=== PATIENT | female | born 1990 | race Caucasian/White ===

== ENCOUNTER 2019-03-10 09:56 | Emergency (ER) | payer SELFPAY ==
[~2019-03-10 09:56] MED LIST: BENZ100C PO; CEPH-264 PO; CETI10TA22 PO; DEPO SHOTS; DIAZ5TAB PO; DULO20CA50 PO; FLUC100T7 PO; FLUT9.9S NS; GABA-586 PO; GUAI118L13 PO; HYDR-1179 PO; HYDR-3165 PO; IBUP800T19 PO; MEDR400V IM; MELO15TA23 PO; METH-38 PO; NEBI5TAB2 PO; NORE-53 PO; ONDA8TAB12 PO; OSEL75CA PO; PHEN-318 PO; TIZA4TAB2 PO; VENL150C PO
[2019-03-10 10:09] VITALS: BP 141/109
--- NOTE | 2019-03-10 10:19 | PHYS DOC ---
Past History Past Medical History: Other Additional Past Medical Histor: PCOS Past Surgical History: Tonsillectomy, Other Additional Past Surgical Histo: R. fallopian tube removed Smoking: Less than 1pk/day Alcohol Use: None Drug Use: None Adult General Chief Complaint Chief Complaint: VAGINAL PROBLEM HPI HPI Patient is a 28-year-old female presents complaining of vaginal discharge for the past 6 weeks. This started shortly after visiting and [place]. She reports that there is a foul odor to the discharge. It has been getting worse over time. She reports what feels like vaginal swelling, and with her menstrual cycle approximately 3 weeks ago she was unable to insert a tampon like she normally does due to the swelling. She also notes some left sided pelvic p ain. She has a history of previous right sided fallopian tube removal due to complications of polycystic ovarian syndrome. She denies any chance of her being . Denies any sexual activity. Holding still as well as moving makes things worse, and the discomfort waxes and wanes over time. No nausea or vomiting. No pain with urination. No back or flank pain. No fever.[] Review of Systems Review of Systems Constitutional: Denies fever or chills [] Eyes: Denies change in visual acuity, redness, or eye pain [] HENT: Denies nasal congestion or sore throat [] Respiratory: Denies cough or shortness of breath [] Cardiovascular: No chest pain or palpitations[] GI: Denies abdominal pain, nausea, vomiting, bloody stools or diarrhea [] : Denies dysuria or hematuria, see history of present illness[] Musculoskeletal: Denies back pain or joint pain [] Integument: Denies rash or skin lesions [] Neurologic: Denies headache, focal weakness or sensory changes [] Endocrine: Denies polyuria or polydipsia [] All other systems were reviewed and found to be within normal limits, except as documented in this note. Allergies Allergies Allergies Coded Allergies Type Severity Reaction Last Updated Verified chlorzoxazone Allergy Intermediate Rash 08/17/16 No Physical Exam Physical Exam Constitutional: Well developed, well nourished, no acute distress, non-toxic appearance. [] HENT: Normocephalic, atraumatic, bilateral external ears normal, oropharynx moist, no oral exudates, nose normal. [] Eyes: PERRLA, EOMI, conjunctiva normal, no discharge. [] Neck: Normal range of motion, no tenderness, supple, no stridor. [] Cardiovascular:Heart rate regular rhythm, no murmur [] Lungs & Thorax: Bilateral breath sounds clear to auscultation [] Abdomen: Bowel sounds normal, soft, no tenderness, no masses, no pulsatile masses. Health exam performed with printing assistant: External genitalia, Maloy's glands, urethra, and Bartholeins glands: There is erythema to the external genitalia, no lesions noted. Vaginal vault: Thin gustafson discharge, no blood. Cervix: Os is closed, no cervical motion tenderness[] Skin: Warm, dry, no erythema, no rash. [] Back: No tenderness, no CVA tenderness. [] Extremities: No tenderness, no cyanosis, no clubbing, ROM intact, no edema. [] Neurologic: Alert and oriented X 3, normal motor function, normal sensory function, no focal deficits noted. [] Psychologic: Affect normal, judgement normal, mood normal. [] Current Patient Data Vital Signs Vital Signs Date Time Temp Pulse Resp B/P (MAP) Pulse Ox O2 Delivery O2 Flow Rate FiO2 03/10/19 10:09 98.1 63 18 95 Room Air EKG EKG [] Radiology/Procedures Radiology/Procedures PROCEDURE: US PELVIS W/TV US PELVIS W/TV Clinical Indication: Left pelvic pain. Right fallopian tube removed due to ovarian cyst. Comparison: None. TECHNIQUE: Real-time ultrasound imaging of the pelvis using transabdominal and transvaginal window is performed. Findings: The transabdominal images are essentially nondiagnostic likely due to bowing bowel gas. Uterus is retroverted. Uterus measures 7.9 x 5.7 x 5 cm. No focal abnormality of the myometrium is identified. The endometrial stripe is normal measuring 6 mm. There are tiny nabothian cysts, largest measures 6 mm. Trace pelvic free fluid. There is normal blood flow in the ovaries. Small ovarian follicles are seen bilaterally. There is a left ovary functional cyst measuring up to 1.9 cm with some internal echoes which may be due to hemorrhage. IMPRESSION: 1. Small left ovary functional cyst may be hemorrhagic. 2. Trace pelvic free fluid, likely physiologic. 3. Tiny nabothian cysts.[] Course & Med Decision Making Course & Med Decision Making Pertinent Labs and Imaging studies reviewed. (See chart for details) ED course: Patient arrived, was placed in bed, and tolerated exam well. Pelvic exam was performed with printing assistant. She was transported to and from radiology with any complications. After return of the laboratory and imaging findings, these were discussed with the patient. All questions were answered. She was discharged in improved condition. Medical decision making: Patient appears to have trichomoniasis. There is no evidence of an STD however this is being evaluated and will be followed if gonorrhea or chlamydia test turn up positive. No evidence of pelvic inflammatory disease. No evidence of significant ovarian pathology at this time, no torsion, no tubo-ovarian abscess.[] Dragon Disclaimer Dragon Disclaimer This electronic medical record was generated, in whole or in part, using a voice recognition dictation system. Departure Departure: Impression: Primary Impression: Trichomoniasis Disposition: HOME, SELF-CARE Condition: IMPROVED Referrals: PCP,NO (PCP) Patient Instructions: Trichomoniasis Additional Instructions: Follow-up with your regular doctor in 2 days. If you do not have a regular doctor list of local clinics will be provided for you. Return to the ER if worsening pain or any other concerns. Scripts Meloxicam (MELOXICAM) 7.5 Mg Tablet 7.5 MG PO DAILY for PAIN, #20 TAB Prov: BARBARA JHA DO 03/10/19 BARBARA JHA DO Mar 10, 2019 10:19
[2019-03-10] MEDS ORDERED: KETOROLAC 30 MG/ML VIAL. IV ONE (10:30)
[2019-03-10 10:36] LABS: BASO % 1 % (0-3); EOS # 0.3 x10^3/uL (0.0-0.7); EOS % 4 % (0-3); HEMATOCRIT 42.6 % (36.0-47.0); HEMOGLOBIN 14.5 g/dL (12.0-15.5); LYMPH # 1.6 x10^3/uL (1.0-4.8); LYMPH % 23 % (24-48); MEAN CORPUSCULAR HEMOGLOBIN 31 pg (25-35); MEAN CORPUSCULAR HGB CONC 34 g/dL (31-37); MEAN CORPUSCULAR VOLUME 92 fL (79-100); MONO # 0.4 x10^3/uL (0.0-1.1); MONO % 6 % (0-9); NEUT # 4.6 x10^3uL (1.8-7.7); NEUT % 66 % (31-73); PLATELET COUNT 280 x10^3/uL (140-400); RED BLOOD COUNT 4.62 x10^6/uL (3.50-5.40)
[2019-03-10 10:50] LABS: ALBUMIN 4.2 g/dL (3.4-5.0); ALBUMIN/GLOBULIN RATIO 1.4 (1.0-1.7); CALCIUM 8.9 mg/dL (8.5-10.1); CREATININE 0.6 mg/dL (0.6-1.0); POTASSIUM 3.9 mmol/L (3.5-5.1); TOTAL BILIRUBIN 0.3 mg/dL (0.2-1.0); TOTAL PROTEIN 7.3 g/dL (6.4-8.2)
[2019-03-10 10:55] LABS: BILIRUBIN,URINE NEG (NEG); CLARITY,URINE CLOUDY; COLOR,URINE YELLOW; GLUCOSE,URINE NEG (NEG); UROBILINOGEN,URINE 0.2 mg/dL (0.2 mg/dL)
[2019-03-10 10:56] LABS: BACTERIA,URINE MOD /HPF (0-FEW); NITRITE,URINE NEG (NEG); RBC,URINE RARE /HPF (0-2); SQUAMOUS EPITHELIAL CELL,UR MANY /LPF; WBC,URINE 20-40 /HPF (0-4)
--- NOTE | 2019-03-10 11:41 | RAD ---
US PELVIS W/TV Clinical Indication: Left pelvic pain. Right fallopian tube removed due to ovarian cyst. Comparison: None. TECHNIQUE: Real-time ultrasound imaging of the pelvis using transabdominal and transvaginal window is performed. Findings: The transabdominal images are essentially nondiagnostic likely due to bowing bowel gas. Uterus is retroverted. Uterus measures 7.9 x 5.7 x 5 cm. No focal abnormality of the myometrium is identified. The endometrial stripe is normal measuring 6 mm. There are tiny nabothian cysts, largest measures 6 mm. Trace pelvic free fluid. There is normal blood flow in the ovaries. Small ovarian follicles are seen bilaterally. There is a left ovary functional cyst measuring up to 1.9 cm with some internal echoes which may be due to hemorrhage. IMPRESSION: 1. Small left ovary functional cyst may be hemorrhagic. 2. Trace pelvic free fluid, likely physiologic. 3. Tiny nabothian cysts. Electronically signed by: Alexi Ya MD (03/10/2019 11:38 AM) [id number]
[2019-03-10] MEDS ORDERED: MELO7.5T29 PO (11:54)
[2019-03-10] MEDS ORDERED: metroNIDAZOLE 500 MG TABLET PO ONE (12:15)
== END 2019-03-10 12:00 | disposition home or self-care (01) ==
LOC: ER 09:56
DX: A59.01 Trichomonal vulvovaginitis (principal); E28.2 Polycystic ovarian syndrome; F17.200 Nicotine dependence, unspecified, uncomplicated; Z90.79 Acquired absence of other genital organ(s); Z88.8 Allergy status to other drugs, medicaments and biological substances
CPT/HCPCS: 36415; 76830; 76856; 80053; 81001; 81025; 83690; 85025; 87086; 87491; 87591; 96374; 99285; J1885; Q0111

== ENCOUNTER 2020-11-06 10:04 | Emergency (ER) | payer SELFPAY ==
[~2020-11-06] VITALS: Ht 165.1 cm; Wt 80.6 kg
[~2020-11-06 10:04] MED LIST changes: -CETI10TA22 PO; +CETI10TA74 PO; +MELO7.5T29 PO
[2020-11-06 10:25] VITALS: BP 142/86
--- NOTE | 2020-11-06 10:54 | PHYS DOC ---
Past History Past Medical History: Other Additional Past Medical Histor: PCOS, sciatica Past Surgical History: Tonsillectomy, Other Additional Past Surgical Histo: R. fallopian tube removed Smoking: Less than 1pk/day Alcohol Use: None Drug Use: None General Adult EDM: Chief Complaint: SORE THROAT HPI: HPI: 30-year-old female presents with sore throat, cough, low-grade fever for the past 2 days. The patient is worried about COVID-19. She has no known exposures. Her 8-year-old son who accompanies her is also ill. He is unable to return to school until he has a negative Covid test. The patient believes she will need a negative test for her place of employment as well. She denies shortness of breath or chest pain. She has no other complaints at this time. Review of Systems: Review of Systems: Constitutional: Fever Eyes: Denies change in visual acuity HENT: Nasal congestion and sore throat Respiratory: Cough without shortness of breath Cardiovascular: Denies chest pain or edema GI: Denies abdominal pain, nausea, vomiting, bloody stools or diarrhea : Denies dysuria Musculoskeletal: Denies back pain or joint pain Integument: Denies rash Neurologic: Denies headache, focal weakness or sensory changes Endocrine: Denies polyuria or polydipsia Lymphatic: Denies swollen glands Psychiatric: Denies depression or anxiety Allergies: Allergies: Allergies Coded Allergies Type Severity Reaction Last Updated Verified chlorzoxazone Allergy Intermediate Rash 08/17/16 No Physical Exam: PE: Constitutional: Well developed, well nourished, no acute distress, non-toxic appearance. [] HENT: Normocephalic, atraumatic, bilateral external ears normal, oropharynx moist, no oral exudates, nose congested. [] Eyes: PERRLA, EOMI, conjunctiva normal, no discharge. [] Neck: Normal range of motion, no tenderness, supple, no stridor. [] Cardiovascular:Heart rate regular rhythm, no murmur [] Lungs & Thorax: Bilateral breath sounds clear to auscultation [] Abdomen: Bowel sounds normal, soft, no tenderness, no masses, no pulsatile masses. [] Skin: Warm, dry, no erythema, no rash. [] Back: No tenderness, no CVA tenderness. [] Extremities: No tenderness, no cyanosis, no clubbing, ROM intact, no edema. [] Neurologic: Alert and oriented X 3, normal motor function, normal sensory function, no focal deficits noted. [] Psychologic: Affect normal, judgement normal, mood normal. [] Current Patient Data: Vital Signs: Vital Signs Date Time Temp Pulse Resp B/P (MAP) Pulse Ox O2 Delivery O2 Flow Rate FiO2 11/06/20 10:25 98.1 78 18 142/86 (104) 99 Room Air EKG: EKG: [] Radiology/Procedures: Radiology/Procedures: [] Heart Score: C/O Chest Pain: N/A Risk Factors: Risk Factors: DM, Current or recent (<one month) smoker, HTN, HLP, family history of CAD, obesity. Risk Scores: Score 0 - 3: 2.5% MACE over next 6 weeks - Discharge Home Score 4 - 6: 20.3% MACE over next 6 weeks - Admit for Clinical Observation Score 7 - 10: 72.7% MACE over next 6 weeks - Early Invasive Strategies Course & Med Decision Making: Course & Med Decision Making Pertinent Labs and Imaging studies reviewed. (See chart for details) We have performed a COVID-19 test. The results are pending. The patient is stable for discharge at this time. [] Dragon Disclaimer: Dragon Disclaimer: This electronic medical record was generated, in whole or in part, using a voice recognition dictation system. Departure Departure: Impression: Primary Impression: Suspected COVID-19 virus infection Disposition: HOME / SELF CARE / HOMELESS Condition: STABLE Referrals: LANEY RIZVI (PCP) Additional Instructions: You have been tested for or diagnosed with COVID-19. It is an infection caused by a new type of coronavirus. COVID-19 will cause cold-like or mild flu symptoms in most. It c an cause more severe symptoms like problems breathing in some. There is no treatment for COVID-19. The body will clear the infection over time. Self-care will help to ease discomfort. Steps to Take: Self-Care Rest as needed. Healthy habits may help you feel better. Steps include: Choose healthy foods including fruits and vegetables. Drink water throughout the day. Get plenty of sleep each night. If you smoke, try to quit. It may ease breathing. Avoid alcohol. Keep Others Healthy The virus can spread to others. Droplets are released every time you sneeze or cough. The droplets can get into the mouth, nose, or eyes of people near you and lead to infection. To lower the chances of spreading COVID-19 to others: Stay at home until your doctor has said it is safe to leave. If you tested positive this will mean staying isolated until both of the following are true: At least 7 days have passed since the start of illness. You are free of fever for at least 72 hours without the use of medicine. During this time: - Avoid public areas, events, or transportation. Do not return to work or school until your doctor has said it is safe to do so. - Call ahead if you need to go to a medical center. Let them know you may have COVID-19. It will help them guide you where to go. They may also ask you to wear a facemask when you come to the office. - If you call for emergency medical services, let them know you may have COVID- 19. While at home: - Try to avoid close contact with others. Stay about 6 feet away. - If possible, spend most of your time in a separate room from others. - Use a face mask if you will be in close contact with others such as sharing a room or vehicle. - Have someone wipe down common surfaces in the home. Use household railroad operating engineer every day on areas like doorknobs, counters, or sinks. - Cough or sneeze into a tissue. Throw the tissue away right after use. If a tissue is not available, cough or sneeze into your elbow. - Wash your hands often. Wash them after sneezing or coughing. Use soap and water and wash for at least 20 seconds. Alcohol based hand ladle cleaner can be used if soap and water is not available. - Do not prepare food for others. Avoid sharing personal items like forks, spoons, or toothbrushes. - Avoid close contact with pets while you are sick. There is no evidence of the virus passing to pets. This is a safety step until more is known about this virus. Isolation can be frustrating. Social interaction can help. Keep in touch with friends and family through phone and tech options. You can still interact with others in your home, just keep a safe distance of about 6 feet. Follow-up: Your doctors office will check in with you to see if there are any changes in your health. You may be asked to keep track of symptoms to share with them. They will also let you know when you are clear to be in public again. Problems to Look Out For: Contact your doctor if your recovery is not going as you expect. Get emergency care if you have problems such as: - Trouble breathing - Nonstop chest pain or pressure - Changes in awareness, confusion, or problems waking - Lips or face have bluish color - Worsening of symptoms If you think you have an emergency, call for emergency medical services right away. As taken from [facility] ANNA IQBAL DO November 06, 2020 10:54
== END 2020-11-06 11:49 | disposition home or self-care (01) ==
LOC: ER 10:04
DX: J02.9 Acute pharyngitis, unspecified (principal); R50.9 Fever, unspecified; R05 Cough; F17.200 Nicotine dependence, unspecified, uncomplicated; Z20.822 Contact with and (suspected) exposure to COVID-19; Z88.8 Allergy status to other drugs, medicaments and biological substances
CPT/HCPCS: 99283; C9803; U0003

== ENCOUNTER 2021-11-03 06:53 | Emergency (ER) | payer SELFPAY ==
[~2021-11-03] VITALS: Ht 165.1 cm; Wt 80.6 kg
[~2021-11-03 06:53] MED LIST changes: +TIZA-75 PO; -TIZA4TAB2 PO; -VENL150C PO; +VENL150C3 PO
--- NOTE | 2021-11-03 07:09 | PHYS DOC ---
Past History Past Medical History: Other Additional Past Medical Histor: PCOS, sciatica Past Surgical History: Tonsillectomy, Other Additional Past Surgical Histo: R. fallopian tube removed Smoking: Less than 1pk/day Alcohol Use: None Drug Use: None General Adult EDM: Chief Complaint: ABDOMINAL PAIN HPI: HPI: Patient is a 31-year-old female who presents with report of lower abdominal pain, right lower quadrant worse than left. Symptoms began last night and it progressively worsened through this morning. She denies fevers or chills. She denies vaginal discharge or bleeding. LMP about 2 weeks ago. She reports nausea, no vomiting. She denies constipation or diarrhea. She denies back or flank pain. She denies urinary symptoms, though she reports that she feels like she cannot urinate just this morning. She denies any pelvic or abdominal trauma. She has a history of PCOS. She has reportedly had a right ovarian cyst removal and right salpingectomy. It does not sound like she had a history of torsion. She denies fevers or chills. She denies cough, dyspnea, chest pain, dizziness, headache. Review of Systems: Review of Systems: Constitutional: Denies fever or chills HENT: Denies nasal congestion or sore throat Respiratory: Denies cough or shortness of breath Cardiovascular: Denies chest pain or edema GI: Generalized lower abdominal pain, pelvic pain, nausea, no vomiting, denies bowel habit changes : Denies urinary symptoms Musculoskeletal: Denies back pain or joint pain Integument: Denies rash Neurologic: Denies headache, focal weakness or sensory changes Psychiatric: Anxiety as it pertains to current clinical condition Allergies: Allergies: Allergies Coded Allergies Type Severity Reaction Last Updated Verified chlorzoxazone Allergy Intermediate Rash 08/17/16 No Physical Exam: PE: Constitutional: Well developed, well nourished, writhing around on the ED gurney, crying, yelling, appears to be uncomfortable and in pain. She is nontoxic in appearance. HENT: Normocephalic, atraumatic, bilateral external ears normal, oropharynx moist, no oral exudates, nose normal. [] Eyes: Conjunctiva are normal, sclerae anicteric Neck: Normal range of motion, no tenderness, supple, no stridor. [] Cardiovascular: Tachycardic, regular, +2 radial and +2 posterior tibial pulses bilaterally Lungs & Thorax: Lungs are clear to auscultation bilaterally without rales, rhonchi or wheezes. No evidence of respiratory distress. Abdomen: Abdomen is soft, nondistended, normal bowel sounds, generalized lower abdominal tenderness, more localized right lower quadrant tenderness, no rigidity, involuntary guarding and rebound tenderness noted, no CVA tenderness, no flank abdominal ecchymosis. No palpable pulsatile mass. No palpable masses organomegaly Skin: Warm, dry, no erythema, no rash. No jaundice. Back: No tenderness, no CVA tenderness. [] Extremities: No tenderness, no cyanosis, no clubbing, ROM intact, no edema. No calf tenderness. Neurologic: Alert and oriented X 3, normal motor function, normal sensory function, no focal deficits noted. [] Psychologic: Anxious, hyperventilating, writhing around on the ED gurney, appears to be in pain. EKG: EKG: [] Radiology/Procedures: Radiology/Procedures: IMAGING REPORT Signed PATIENT: ROLO BARRAGAN LACCOUNT: [id number] : 1990 LOCATION: ER AGE: 31 SEX: F EXAM STATUS: REG ER ORD. PHYSICIAN: ALISON FONSECA DO REASON: pelvic pain, hx of pcos PROCEDURE: US PELVIS W/TV Pelvic ultrasound complete: Reason for examination: Pelvic pain for one day. History of polycystic ovary syndrome. History of right fallopian tube removal. Transabdominal and transvaginal ultrasound examination of the pelvis was performed. No abnormality seen at the bladder. Uterus measures 7.8 x 3.7 x 4 cm in greatest dimensions. Endometrium is not abnormally thickened at 7.9 mm. No uterine mass is seen. Right ovary measures 3 x 2.2 x 2.8 cm in greatest dimension with good vascular flow and a few small follicles are present. Left ovary measures 2.6 x 2.5 x 2.3 cm in greatest dimension and shows good vascular flow and a few small follicles are present. There is complex free fluid present in the pelvic cul-de-sac. IMPRESSION: Small follicles seen bilaterally in the ovaries. Complex free fluid present in the pelvic cul-de-sac. Electronically signed by: Handy Paz MD (11/03/2021 9:42 AM) RADHATIFFANIE DICTATED AND SIGNED BY: HANDY PAZ MD DATE: 11/03/21 0937 CC: ALISON FONSECA DO; LANEY RIZVI ~ IMAGING REPORT Signed PATIENT: ROLO BARRAGANOUNT: [id number] : 1990 LOCATION: ER AGE: 31 SEX: F EXAM STATUS: REG ER ORD. PHYSICIAN: ALISON FONSECA DO REASON: rlq pain, complex fluid in pelvis on us, OMNI 300, 75ml PROCEDURE: CT ABD PELV W/ IV CONTRST ONLY CT abdomen and pelvis with contrast: Reason for examination: Right lower quadrant pain. Complex fluid in the pelvis on ultrasound. Helical images were obtained through the abdomen pelvis with intravenous administration of 75 cc Omnipaque 300. Reconstruction was performed in sagittal and coronal planes. Exposure: One or more of the following individualized dose reduction techniques were utilized for this examination: 1. Automated exposure control 2. Adjustment of the mA and/or kV according to patient size 3. Use of iterative re construction technique. The lung bases are clear. The heart size appears to be normal with no pericardial effusion. No abnormality seen at the liver, spleen, adrenal glands, gallbladder or pancreas. The kidneys show no renal masses, renal calculi, hydronephrosis or evidence of obstructive uropathy. There is some thickening of the wall in the sigmoid colon which may reflect some colitis. The appendix is not identified. The small intestinal tract shows no abnormal dilatation, wall thickening or apparent obstruction. No abnormality seen at the stomach or duodenum. No abnormality seen at the bladder, uterus or ovaries. There is a small amount of free fluid present in the abdomen and pelvis with fluid extending up to the right hepatorenal space. Note is also made of some scattered foci of free air within the abdomen and pelvis. No acute bony abnormalities are seen. IMPRESSION: Small amount of free fluid seen up to the right hepatorenal space. Scattered foci of some free air present in the abdomen and pelvis. Definite site of origin is not identified. Thickening of the colonic wall in the sigmoid colon which may reflect colitis. Electronically signed by: Handy Paz MD (11/03/2021 11:24 AM) [facility] DICTATED AND SIGNED BY: HANDY PAZ MD DATE: 11/03/21 1110 CC: ALISON FONSECA DO; LANEY RIZVI ~ Heart Score: C/O Chest Pain: No Risk Factors: Risk Factors: DM, Current or recent (<one month) smoker, HTN, HLP, family history of CAD, obesity. Risk Scores: Score 0 - 3: 2.5% MACE over next 6 weeks - Discharge Home Score 4 - 6: 20.3% MACE over next 6 weeks - Admit for Clinical Observation Score 7 - 10: 72.7% MACE over next 6 weeks - Early Invasive Strategies Course & Med Decision Making: Course & Med Decision Making Pertinent Labs and Imaging studies reviewed. (See chart for details) The patient is given IV fluid boluses. She is given multiple analgesic medications including morphine, Dilaudid, Toradol. She is given IV Zosyn empirically for treatment of peritonitis and concern for perforated viscus with free air and free fluid in abdomen. She is kept NPO. I have discussed the findings, differential diagnosis and plan of care with the patient, at great length. I explained the need for transfer to a facility with surgery services. She requests [facility]. The patient was ultimately accepted at [facility] by surgeon, Dr. Rivera. The patient is resting more comfortably, she does not appear to be in significant distress at this time. She understands the need for transfer, consents for transfer and is comfortable with the plan of care. Edward Disclaimer: Dragrj Disclaimer: This electronic medical record was generated, in whole or in part, using a voice recognition dictation system. Departure Departure: Impression: Primary Impression: Peritoneal free air Additional Impressions: Peritonitis (acute) generalized Perforated abdominal viscus Lactic acidosis Disposition: [facility] ([facility]) Admitting Physician: Other (Dr. Rivera at [facility]) Condition: GUARDED Referrals: LANEY RIZVI (PCP) ALISON FONSECA DO November 03, 2021 07:09
[2021-11-03] MEDS ORDERED: MORPHINE SULFATE 4 MG/ML DISP.SYRIN. IV ONE ×3 (07:15→10:00)
[2021-11-03] MEDS ORDERED: ONDANSETRON PF 4 MG/2 ML VIAL. IVP ONE (07:15)
[2021-11-03] MEDS ORDERED: IV NORMAL SALINE 1,000ML 1,000 ML IV ONE ×3 (07:15→13:45)
[2021-11-03 07:49] LABS: BASO % 0 % (0-3); EOS # 0.1 x10^3/uL (0.0-0.7); EOS % 0 % (0-3); HEMATOCRIT 43.5 % (36.0-47.0); HEMOGLOBIN 14.5 g/dL (12.0-15.5); LYMPH # 3.2 x10^3/uL (1.0-4.8); LYMPH % 20 % (24-48); MEAN CORPUSCULAR HEMOGLOBIN 31 pg (25-35); MEAN CORPUSCULAR HGB CONC 33 g/dL (31-37); MEAN CORPUSCULAR VOLUME 93 fL (79-100); MONO # 0.7 x10^3/uL (0.0-1.1); MONO % 5 % (0-9); NEUT # 11.7 x10^3uL (1.8-7.7); NEUT % 74 % (31-73); PLATELET COUNT 310 x10^3/uL (140-400); RED BLOOD COUNT 4.67 x10^6/uL (3.50-5.40); RED CELL DISTRIBUTION WIDTH 14.3 % (11.5-14.5); WHITE BLOOD COUNT 15.7 x10^3/uL (4.0-11.0)
[2021-11-03] MEDS ORDERED: HYDROmorphone PF 1 MG/ML DISP.SYRIN IVP ONE ×3 (08:30→14:00)
[2021-11-03] MEDS ORDERED: MAGNESIUM SULFATE 1GM 100 ML IV ONE (08:30)
[2021-11-03 08:36] LABS: CALCIUM 8.3 mg/dL (8.5-10.1); CREATININE 0.7 mg/dL (0.6-1.0); GFR 97.6; POTASSIUM 3.3 mmol/L (3.5-5.1)
[2021-11-03 08:37] LABS: PREG TEST PT QUAL NEGATIVE (NEG)
[2021-11-03 08:42] LABS: ALBUMIN/GLOBULIN RATIO 1.2 (1.0-1.7); TOTAL BILIRUBIN 0.3 mg/dL (0.2-1.0); TOTAL PROTEIN 5.5 g/dL (6.4-8.2)
[2021-11-03] MEDS ORDERED: MVI, ADULT NO.4 WITH VIT K 10 ML, FOLIC ACID INJ 1 MG, THIAMINE INJ 100 MG in IV NORMAL... IV ONE (09:00)
--- NOTE | 2021-11-03 09:44 | RAD ---
Pelvic ultrasound complete: Reason for examination: Pelvic pain for one day. History of polycystic ovary syndrome. History of rig ht fallopian tube removal. Transabdominal and transvaginal ultrasound examination of the pelvis was performed. No abnormality seen at the bladder. Uterus measures 7.8 x 3.7 x 4 cm in greatest dimensions. Endometrium is not abnormally thickened at 7 .9 mm. No uterine mass is seen. Right ovary measures 3 x 2.2 x 2.8 cm in greatest dimension with good vascular flow and a few small f ollicles are present. Left ovary measures 2.6 x 2.5 x 2.3 cm in greatest dimension and shows good vascular flow and a few s mall follicles are present. There is complex free fluid present in the pelvic cul-de-sac. IMPRESSION: Small follicles seen bilaterally in the ovaries. Complex free fluid present in the pelvic cul-de-sac. Electronically signed by: Jyotsna Swain MD (11/03/2021 9:42 AM) YAIR
[2021-11-03 10:22] LABS: BACTERIA,URINE 0 /HPF (0-FEW); CLARITY,URINE HAZY; COLOR,URINE YELLOW; GLUCOSE,URINE NEG (NEG); NITRITE,URINE NEG (NEG); RBC,URINE OCC /HPF (0-2); SQUAMOUS EPITHELIAL CELL,UR MOD /LPF; UROBILINOGEN,URINE 0.2 mg/dL (0.2 mg/dL); YEAST,URINE PRESENT /HPF
[2021-11-03] MEDS ORDERED: IOHEXOL 300 MG/ML 75 ML VIAL. IV ONE (10:30)
[2021-11-03] MEDS ORDERED: CONTRAST GIVEN. MC PRN (10:30)
[2021-11-03 10:51] LABS: % ATYL 5 % (0-0); % BANDS 3 % (0-9); % EOS 1 % (0-5); % LYMPHS 59 % (24-48); % MONOS 4 % (0-10); % SEGS 28 % (35-66)
[2021-11-03 10:56] LABS: PLT ESTIMATE ADEQUATE (ADEQUATE)
--- NOTE | 2021-11-03 11:27 | RAD ---
CT abdomen and pelvis with contrast: Reason for examination: Right lower quadrant pain. Complex fluid in the pelvis on ultrasound. Helical images were obtained through the abdomen pelvis with intravenous administration of 75 cc Omni paque 300. Reconstruction was performed in sagittal and coronal planes. Exposure: One or more of the following individualized dose reduction techniques were utilized for thi s examination: 1. Automated exposure control 2. Adjustment of the mA and/or kV according to patient size 3. Use of iterative reconstruction technique. The lung bases are clear. The heart size appears to be normal with no pericardial effusion. No abnormality seen at the liver, spleen, adrenal glands, gallbladder or pancreas. The kidneys show no renal masses, renal calculi, hydronephrosis or evidence of obstructive uropathy. There is some thickening of the wall in the sigmoid colon which may reflect some colitis. The appendi x is not identified. The small intestinal tract shows no abnormal dilatation, wall thickening or appa rent obstruction. No abnormality seen at the stomach or duodenum. No abnormality seen at the bladder, uterus or ovaries. There is a small amount of free fluid present in the abdomen and pelvis with fluid extending up to the right hepatorenal space. Note is also made o f some scattered foci of free air within the abdomen and pelvis. No acute bony abnormalities are seen. IMPRESSION: Small amount of free fluid seen up to the right hepatorenal space. Scattered foci of some free air present in the abdomen and pelvis. Definite site of origin is not jake ntified. Thickening of the colonic wall in the sigmoid colon which may reflect colitis. Electronically signed by: Jyotsna Swain MD (11/03/2021 11:24 AM) YAIR
[2021-11-03] MEDS ORDERED: PIPERACILLIN/TAZOBACTAM 3.375 GM in IV NORMAL SALINE 50ML 50 ML IV ONE (12:00)
[2021-11-03] MEDS ORDERED: KETOROLAC 15 MG/ML VIAL. IVP ONE (12:00)
[2021-11-03] MEDS ORDERED: IV NORMAL SALINE 50ML 50 ML ONE (12:23)
[2021-11-03] MEDS ORDERED: PIPERACILLIN/TAZOBACTAM 3.375 GM VIAL IV ONE (12:23)
[2021-11-03 13:18] VITALS: BP 125/70
== END 2021-11-03 13:50 | disposition short-term general hospital (02) ==
LOC: ER 06:53
DX: K65.0 Generalized (acute) peritonitis (principal); K63.1 Perforation of intestine (nontraumatic); E87.2 Acidosis; F17.200 Nicotine dependence, unspecified, uncomplicated; Z88.8 Allergy status to other drugs, medicaments and biological substances
CPT/HCPCS: 36415; 74177; 76830; 76856; 80053; 81001; 83605; 83690; 84703; 85007; 85025; 96361; 96365; 96375; 96376; 99285; J1170; J1885; J2270; J2405; J2543; J7030; Q9967